=== PATIENT | male | born 1940 | race Caucasian/White ===

== ENCOUNTER 2017-01-02 08:50 | Emergency (ER) | payer MEDICARE ==
[~2017-01-02] VITALS: Ht 182.9 cm; Wt 63.0 kg
[~2017-01-02 08:50] MED LIST: CLIN150 PO
[2017-01-02 08:51] VITALS: BP 127/81; PULSE 119; RESP 20; TEMP 97.7; O2SAT 96
[2017-01-02] MEDS ORDERED: NORC5TAB PO (09:20)
[2017-01-02] MEDS ORDERED: GABA300C5 PO (09:20)
[2017-01-02] MEDS ORDERED: ACYC-101 PO (09:20)
--- NOTE | 2017-01-02 09:20 | PD ---
HPI Chief Complaint: Complaint Time Seen by Provider: 09:08 Travel History International Travel<30 days: No Contact w/Intl Traveler<30days: No Traveled to known affect area: No History of Present Illness HPI 76-year-old male complains of right flank pain. Patient states that the pain started last night. Patient states the pain is sharp pain burning pain started on the right flank area with radiation to right side abdomen. Patient denies any fever chills. Patient denies any dysuria or frequency. Patient denies any nausea vomiting diarrhea. Patient denies any injury. PFSH Past Medical History Hx Anticoagulant Therapy: No Cardiovascular Problems: No Chemotherapy: No COPD: Yes Cerebrovascular Accident: No Diabetes: No Respiratory: No Tetanus Vaccination: Unknown ?: Not Past Surgical History Hysterectomy: No Social History Alcohol Use: No Tobacco Use: Yes (1 PPD) Substance Use: No Allergies-Medications (Allergen,Severity, Reaction): Coded Allergies: No Known Allergies (Unverified , 01/02/17) Reported Meds & Prescriptions Reported Meds & Active Scripts Active Ulysses (Hydrocodone-Acetaminophen) 5-325 mg Tab 1 Tab PO Q6H PRN Gabapentin 300 Mg Cap 300 Mg PO TID Zovirax (Acyclovir) 800 Mg Tab 800 Mg PO 5 TIMES A DAY Review of Systems General / Constitutional: No: Fever Eyes: No: Visual changes HENT: No: Headaches Cardiovascular: No: Chest Pain or Discomfort Respiratory: No: Shortness of Breath Gastrointestinal: No: Abdominal Pain Genitourinary: No: Dysuria Musculoskeletal: No: Pain Skin: No Rash Neurologic: No: Weakness Psychiatric: No: Depression Endocrine: No: Polydipsia Hematologic/Lymphatic: No: Easy Bruising Physical Exam Narrative GENERAL: Well-nourished, well-developed patient. SKIN: Focused skin assessment warm/dry. HEAD: Normocephalic. EYES: No scleral icterus. No injection or drainage. NECK: Supple, trachea midline. No JVD or lymphadenopathy. CARDIOVASCULAR: Regular rate and rhythm without murmurs, gallops, or rubs. RESPIRATORY: Breath sounds equal bilaterally. No accessory muscle use. GASTROINTESTINAL: Abdomen soft, non-tender, nondistended. MUSCULOSKELETAL: No cyanosis, or edema. BACK: Nontender without obvious deformity. No CVA tenderness. Patient has maculopapular rash following dermatome right flank area with extension to the right lower abdomen. Data Data Last Documented VS Vital Signs Date Time Temp Pulse Resp B/P Pulse Ox O2 Delivery O2 Flow Rate FiO2 01/02/17 08:51 97.7 119 20 127/81 96 Room Air MDM Medical Decision Making Medical Screen Exam Complete: Yes Emergency Medical Condition: Yes Differential Diagnosis Differential diagnosis including shingles, folliculitis, cellulitis, nephrolithiasis, pyelonephritis, colitis. Narrative Course 76-year-old male with painful rash right flank area and right side abdomen. Diagnosis Primary Impression: Shingles Qualified Code: B02.9 - Herpes zoster without complication Patient Instructions: General Instructions Additional Instructions: Take medications as directed. Follow-up with personal physician. Return if intractable pain, fever, vomiting. Take stool softener with pain medication. Med/Other Pt SpecificInfo: Prescription(s) given Scripts Hydrocodone-Acetaminophen (Ulysses)5-325 mg Tab1 Tab PO Q6H PRN (PAIN) #30 TAB Ref 0 Prov:Hemal Pack MD 01/02/17 Gabapentin 300 Mg [id number] Mg PO TID #60 CAP Ref 0 Prov:Hemal Pack MD 01/02/17 Acyclovir (Zovirax)800 Mg [id number] Mg PO 5 TIMES A DAY #35 TAB Ref 0 Prov:Hemal Pack MD 01/02/17 Disposition: 01 DISCHARGE HOME Condition: Stable Hemal Pack MD Jan 02, 2017 09:20
== END 2017-01-02 09:38 | disposition home or self-care (01) ==
LOC: NEPE 08:50
DX: B02.9 Zoster without complications (principal); F17.200 Nicotine dependence, unspecified, uncomplicated; Z87.09 Personal history of other diseases of the respiratory system
CPT/HCPCS: 99284

== ENCOUNTER 2018-03-14 07:46 | Inpatient (IN) ==
[2018-03-14] MEDS ORDERED: MethylPREDNISolone Sod Succinate Inj 125 MG/2 ML Vial IV.PUSH ONE (08:25)
--- NOTE | 2018-03-14 08:31 | ED ---
HPI General Chief complaint: Shortness of Breath/Dyspnea Stated complaint: COPD complaint History of Present Illness HPI narrative: Mr. Lawrence is a 77-year old diagnosed 2 years ago with COPD who presents to the ED with a chief complaint of "My breathing." For the past month the patient has experienced exertional dyspnea that has been getting progressively worse. He has a nebulizer that he uses regularly without significant symptom relief. He denies chest pain, pain with deep inspiration, nausea, vomiting, weakness, tremor, diaphoresis. He describes having occasional chest pressure. Related Data Home Medications Medication Instructions Recorded Confirmed albuterol sulfate 2.5 mg INHALATION QID PRN 03/14/18 03/14/18 Allergies Allergy/AdvReac Type Severity Reaction Status Date / Time No Known Allergies Allergy Verified 03/14/18 10:32 Review of Systems ROS: all other systems reviewed are negative ON LICENSE OF [facility] Medical History Medical History COPD (chronic obstructive pulmonary disease) (Acute) Neck mass (Acute) Social History Social History Substance History: No History of Abuse Second Hand Smoke Exposure: No Smoking Status: Current every day smoker Tobacco Type: Cigarettes How Often Do You Have a Drink Containing Alcohol: Never Recent Travel in [facility] within the Last 8 Weeks: No Recent Out of Country Travel within the Last 8 Weeks: No Immunization History Tetanus Immunization: Unsure Hx Influenza Vaccine This Season: No Exam Narrative Exam Narrative: GENERAL: Appears in no acute distress. Speaks comfortably and logically. Alert and oriented x 3. SKIN: Warm and dry. HEAD: Atraumatic. Normocephalic. EYES: Pupils equal and round. No scleral icterus. No injection or drainage. ENT: No nasal bleeding or discharge. Mucous membranes pink and moist. NECK: Trachea midline. Supple. CARDIOVASCULAR: Tachycardic with an irregular rhythm. S1, S2 present. No murmurs. RESPIRATORY: Mild accessory muscle use. Decreased throughout bilaterally. Left lung base breath sounds diminished. Middle-right lung wheezing. GASTROINTESTINAL: Abdomen soft, non-tender, nondistended. Hepatic and splenic margins not palpable. MUSCULOSKELETAL: Extremities without clubbing, cyanosis, or edema. No obvious deformities. NEUROLOGICAL: Awake and alert. No obvious cranial nerve deficits. Motor grossly within normal limits. Five out of 5 muscle strength in the arms and legs. Normal speech. PSYCHIATRIC: Appropriate mood and affect; insight and judgment normal. Course Initial Documented Vital Signs Temperature 97.4 F L 03/14/18 07:54 Pulse Rate 111 H 03/14/18 07:54 Respiratory Rate 18 03/14/18 07:54 Blood Pressure 127/95 H 03/14/18 07:54 Pulse Oximetry 96 03/14/18 07:54 Last Documented Vital Signs Temperature 97.4 F L 03/14/18 07:54 Pulse Rate 106 H 03/14/18 08:36 Respiratory Rate 20 03/14/18 08:36 Blood Pressure 127/95 H 03/14/18 07:54 Pulse Oximetry 96 03/14/18 08:17 Medical Decision Making MDM Narrative Medical decision making narrative: EKG shows frequent PVCs, questionable repolarization STs in V3. Poor baseline it is fairly hard to read the initial EKG. A repeat EKG was done which shows a left bundle branch block. Patient's chest x-ray shows significant signs of bilateral pleural effusion, edema at the bases concerning for possible CHF. BNP is 1000. Patient had initially been given Solu-Medrol nebulizers with some improvement in breathing. Lasix was also given after chest x-ray was identified. His troponin is mildly elevated 0.07. Case was discussed with Dr. Cazares who states that he would like the troponins to be followed, and at this point considering he is [facility], thinks that he probably is better off at [facility] in [facility]. Case had been discussed with Dr. Peres for admission. Medical Screen Exam Complete: Yes Emergency Medical Condition: Yes Differential Diagnosis Differential Diagnosis: COPD versus pneumonia versus CHF versus ACS Lab Data Result diagrams: 03/14/18 08:45 03/14/18 08:45 Lab Results 03/14/18 03/14/18 03/14/18 Range/Units 08:45 08:45 08:45 CBC w Diff Auto diff final WBC 7.7 (4.0-11.0) th/mm3 RBC 4.40 L (4.50-5.90) mil/mm3 Hgb 13.7 (13.0-17.0) gm/dL Hct 40.0 (39.0-51.0) % MCV 90.9 (80.0-100.0) fL MCH 31.1 (27.0-34.0) pg MCHC 34.3 (32.0-36.0) % RDW 14.3 (11.6-17.2) % Plt Count 151 (150-450) th/mm3 MPV 10.7 (7.0-11.0) fL Neut % (Auto) 69.2 (16.0-70.0) % Lymph % (Auto) 22.0 (9.0-44.0) % Tama % (Auto) 6.4 (0.0-8.0) % Eos % (Auto) 1.4 (0.0-4.0) % Baso % (Auto) 1.0 (0.0-2.0) % Neut # (Auto) 5.3 (1.8-7.7) th/mm3 Lymph # (Auto) 1.7 (1.0-4.8) th/mm3 Tama # (Auto) 0.5 (0.0-0.9) th/mm3 Eos # (Auto) 0.1 (0.0-0.4) th/mm3 Baso # (Auto) 0.1 (0.0-0.2) th/mm3 WBC Differential . Differential Comment . Sodium 137 (136-145) meq/L Potassium 3.9 (3.5-5.1) meq/L Chloride 104 (98-107) meq/L Carbon Dioxide 24.9 (21.0-32.0) meq/L Anion Gap 8 (5-15) meq/L BUN 21 H (7-18) mg/dL Creatinine 1.10 (0.60-1.30) mg/dL Estimated GFR 65 L (>89) mL/min Random Glucose 131 H (74-106) mg/dL Calcium 8.8 (8.5-10.1) mg/dL Total Bilirubin 0.7 (0.2-1.0) mg/dL AST 46 H (15-37) U/L ALT 33 (12-78) U/L Alkaline Phosphatase 69 (45-117) U/L Troponin I 0.07 H (0.02-0.05) ng/mL B-Natriuretic Peptide 1009 H (0-100) pg/mL Total Protein 7.7 (6.4-8.2) g/dL Albumin 3.4 (3.4-5.0) g/dL Imaging Data Radiologist's impression: Chest X-Ray 09/02/18 08:17 CONCLUSION: Lower lobe consolidation and pleural effusions. Discharge Plan Discharge Disposition Patient Disposition: 30 Still Patient Discharge Condition Condition: Stable Discharge Details Anticipated Discharge Date: 03/14/18 Diagnosis: Acute exacerbation of chronic obstructive airways disease, CHF (congestive heart failure), Elevated troponin Physicians Team ED Provider: Linette Ortiz Primary Care Provider: Primary Care Nadeen Bland Attending Provider: Liv Peres Status ED Status: Admitted Observation Patient
--- NOTE | 2018-03-14 08:44 | XR ---
EXAM DATE: 03/14/2018 8:41 AM EDT AGE/SEX: 77 years / Male INDICATIONS: Short of breath, cough CLINICAL DATA: This is the patient's initial encounter. Patient reports that signs and symptoms have been present for 2 weeks and indicates a pain score of 0/10. MEDICAL/SURGICAL HISTORY: Chronic obstructive pulmonary disease. None. COMPARISON: No prior exams available for comparison. FINDINGS: The examination demonstrates cardiomegaly, consolidation in the lower lobes and small to moderate katie ateral pleural effusions, left greater than right. The osseous structures are intact. CONCLUSION: Lower lobe consolidation and pleural effusions. Electronically signed by: Kike Meraz MD 03/14/2018 8:43 AM EDT
[2018-03-14 09:05] LABS: Chloride 104 meq/L (98-107); Potassium 3.9 meq/L (3.5-5.1); Sodium 137 meq/L (136-145)
[2018-03-14 09:09] LABS: Albumin 3.4 g/dL (3.4-5.0); Anion Gap 8 meq/L (5-15); Blood Urea Nitrogen 21 mg/dL (7-18); Calcium 8.8 mg/dL (8.5-10.1); Carbon Dioxide 24.9 meq/L (21.0-32.0); Glucose,Random 131 mg/dL (74-106)
[2018-03-14 09:10] LABS: Baso # (Auto) 0.1 th/mm3 (0.0-0.2); Eos # (Auto) 0.1 th/mm3 (0.0-0.4); Eos % (Auto) 1.4 % (0.0-4.0); Hemoglobin 13.7 gm/dL (13.0-17.0); Lymph # (Auto) 1.7 th/mm3 (1.0-4.8); Mean Corpuscular HGB Conc 34.3 % (32.0-36.0); Mean Corpuscular Hemoglobin 31.1 pg (27.0-34.0); Mean Corpuscular Volume 90.9 fL (80.0-100.0); Mean Platelet Volume 10.7 fL (7.0-11.0); Mono # (Auto) 0.5 th/mm3 (0.0-0.9); Mono % (Auto) 6.4 % (0.0-8.0); Neut # (Auto) 5.3 th/mm3 (1.8-7.7); Neut % (Auto) 69.2 % (16.0-70.0); Platelet Count 151 th/mm3 (150-450); Red Cell Distribution Width 14.3 % (11.6-17.2); White Blood Count 7.7 th/mm3 (4.0-11.0)
[2018-03-14 09:12] LABS: Alanine Aminotransferase 33 U/L (12-78); Aspartate Aminotransferase 46 U/L (15-37); Glomerular Filtration Rate 65 mL/min (>89)
[2018-03-14 09:14] LABS: Total Protein 7.7 g/dL (6.4-8.2)
[2018-03-14 09:15] LABS: Alkaline Phosphatase 69 U/L (45-117)
[2018-03-14 09:17] LABS: Troponin I 0.07 ng/mL (0.02-0.05)
[2018-03-14] MEDS ORDERED: Bisacodyl 10 MG Supp RECTAL PRN (10:18)
[2018-03-14] MEDS ORDERED: Acetaminophen 325 MG Tablet PO PRN (10:18)
--- NOTE | 2018-03-14 11:47 | P.HP ---
History of Present Illness Service: Hospitalist Primary Care Physician: No Primary Care Physician Chief Complaint: Shortness of breath History of Present Illness: Mr. Lawrence is a pleasant 77-year-old male with a history of COPD who presented to the emergency department today 03/14/2018 due to shortness of breath. In the last 2 weeks he has been noticing progressively worsening shortness of breath as well as worsening of his chronic cough with phlegm production. Patient denies any orthopnea, lower extremity swelling. He denies any chest pain, fever or chills. No abdominal pain. No changes in bowel or bladder habits. ED evaluation shows lower lobe consolidation and pleural effusion. His troponin was 0.07 and BNP was 1009. Past medical history: COPD Past surgical history: When patient was 12 years old he had a neck mass removal. Social history: Patient currently smokes 5 cigarettes a day. However he has a history of 50 year of smoking approximately 1 pack a day. Denies using alcohol or illicit drugs. Family history: Mother had Alzheimer's disease. - Diagnosis (1) Acute exacerbation of chronic obstructive airways disease (2) CHF (congestive heart failure) (3) Elevated troponin Review of Systems All other systems reviewed negative except as stated in HPI PMFSH - History History Provided By: Patient - Medical History Medical History: Medical History (Last Reviewed 03/14/18 @ 10:59 by Linette Ortiz MD) COPD (chronic obstructive pulmonary disease) Neck mass - Tobacco History Second Hand Smoke Exposure: No Tobacco Use In Past 30 Days: Yes Smoking Status: Current every day smoker Tobacco Type: Cigarettes - Alcohol History How Often Do You Have a Drink Containing Alcohol: Never - Substance Use History Substance History: No History of Abuse - Travel History Recent Travel in the [place] Within the Last 8 Weeks: No Recent Travel Out of the Country Within the Last 8 Weeks: No - Immunization History Tetanus Immunization: Unsure Hx Influenza Vaccine This Season: No Medications and Allergies Active Medications: Active Medications Acetaminophen (Tylenol) 650 mg PO Q4H PRN PRN Reason: Headache, fever, pain 1-4 Al Hydroxide/Mg Hydroxide (Milk Of Magnesia Liq) 30 ml PO Q12H PRN PRN Reason: Mild Constipation Bisacodyl (Dulcolax Supp) 10 mg RECTAL DAILY PRN PRN Reason: SEVERE CONSITIPATION Lactulose (Lactulose Liq) 30 ml PO DAILY PRN PRN Reason: SEVERE CONSITIPATION Ondansetron HCl (Zofran Inj) 4 mg IV.PUSH Q6H PRN PRN Reason: NAUSEA OR VOMITING Sennosides (Senokot) 17.2 mg PO Q12H PRN PRN Reason: Moderate Constipation Allergies Allergy/AdvReac Type Severity Reaction Status Date / Time No Known Allergies Allergy Verified 03/14/18 10:32 Home Medications Medication Instructions Recorded Confirmed Type albuterol sulfate 2.5 mg INHALATION QID PRN 03/14/18 03/14/18 History Exam Vital signs: Vital Signs 03/14/18 07:54 03/14/18 08:17 03/14/18 08:20 Temperature 97.4 F L Pulse Rate 111 H 97 H Respiratory Rate 18 Blood Pressure 127/95 H Pulse Oximetry 96 96 03/14/18 08:36 03/14/18 09:24 03/14/18 10:35 Temperature Pulse Rate 106 H 104 H 104 H Respiratory Rate 20 18 Blood Pressure 135/88 Pulse Oximetry 97 03/14/18 11:26 Temperature Pulse Rate 110 H Respiratory Rate 20 Blood Pressure 133/80 Pulse Oximetry 96 Intake & Output 03/13/18 03/14/18 03/14/18 18:59 06:59 18:59 Output Total 600 / 600 Balance -600 / -600 Weight 61 kg Output: Urine 600 / 600 Narrative: GENERAL: Alert, no acute distress, cachectic appearance. SKIN: No rashes, ecchymoses or lesions. Warm and dry. HEAD: Atraumatic. Normocephalic. No temporal or scalp tenderness. EYES: Pupils equal round and reactive. No injection or drainage. ENT: Nose without bleeding, purulent drainage or septal hematoma. Airway patent. NECK: Trachea midline. No lymphadenopathy. Supple, nontender, no meningeal signs. CARDIOVASCULAR: Regular rate and rhythm without murmurs, gallops, or rubs. No JVD. RESPIRATORY: Moderate air entry, no wheezes, rales, or rhonchi. GASTROINTESTINAL: Abdomen soft, non-tender, nondistended. No guarding. MUSCULOSKELETAL: Extremities without clubbing, cyanosis, or edema. NEUROLOGICAL: Awake and alert. Cranial nerves II through XII intact. No focal neurological deficits. Normal speech. Results - Labs CBC & Chem 7: 03/14/18 08:45 03/14/18 08:45 Labs: Laboratory Results - last 24 hr 03/14/18 03/14/18 03/14/18 08:45 08:45 08:45 CBC w Diff Auto diff final WBC 7.7 RBC 4.40 L Hgb 13.7 Hct 40.0 MCV 90.9 MCH 31.1 MCHC 34.3 RDW 14.3 Plt Count 151 MPV 10.7 Neut % (Auto) 69.2 Lymph % (Auto) 22.0 Weld % (Auto) 6.4 Eos % (Auto) 1.4 Baso % (Auto) 1.0 Neut # (Auto) 5.3 Lymph # (Auto) 1.7 Weld # (Auto) 0.5 Eos # (Auto) 0.1 Baso # (Auto) 0.1 WBC Differential . Differential Comment . Sodium 137 Potassium 3.9 Chloride 104 Carbon Dioxide 24.9 Anion Gap 8 BUN 21 H Creatinine 1.10 Estimated GFR 65 L Random Glucose 131 H Calcium 8.8 Magnesium Total Bilirubin 0.7 AST 46 H ALT 33 Alkaline Phosphatase 69 Troponin I 0.07 H B-Natriuretic Peptide 1009 H Total Protein 7.7 Albumin 3.4 03/14/18 08:45 CBC w Diff WBC RBC Hgb Hct MCV MCH MCHC RDW Plt Count MPV Neut % (Auto) Lymph % (Auto) Weld % (Auto) Eos % (Auto) Baso % (Auto) Neut # (Auto) Lymph # (Auto) Weld # (Auto) Eos # (Auto) Baso # (Auto) WBC Differential Differential Comment Sodium Potassium Chloride Carbon Dioxide Anion Gap BUN Creatinine Estimated GFR Random Glucose Calcium Magnesium 1.7 Total Bilirubin AST ALT Alkaline Phosphatase Troponin I B-Natriuretic Peptide Total Protein Albumin - Imaging Impressions Chest X-Ray 03/14/18 08:17 CONCLUSION: Lower lobe consolidation and pleural effusions. Caprini VTE Risk Assessment Caprini VTE Risk Assessment: No/Low Risk (score <= 1) Caprini Risk Assessment Model: Point Value = 1 Point Value = 2 Point Value = 3 Point Value = 5 Age 41-60 Minor surgery BMI > 25 kg/m2 Swollen legs Varicose veins or History of unexplained or recurrent spontaneous Oral contraceptives or hormone replacement Sepsis (< 1 month) Serious lung disease, including pneumonia (< 1 month) Abnormal pulmonary function Acute myocardial infarction Congestive heart failure (< 1 month) History of inflammatory bowel disease Medical patient at bed rest Age 61-74 Arthroscopic surgery Major open surgery (> 45 min) Laparoscopic surgery (> 45 min) Malignancy Confined to bed (> 72 hours) Immobilizing plaster cast Central venous access Age >= 75 History of VTE Family history of VTE Factor V Leiden Prothrombin [id number] Lupus anticoagulant Anticardiolipin antibodies Elevated serum homocysteine Heparin-induced thrombocytopenia Other congenital or acquired thrombophilia Stroke (< 1 month) Elective arthroplasty Hip, pelvis, or leg fracture Acute spinal cord injury (< 1 month) Prophylaxis Regimen: Total Risk Factor Score Risk Level Prophylaxis Regimen 0-1 Low Early ambulation 2 Moderate Order ONE of the following: *Sequential Compression Device (SCD) *Heparin 5000 units SQ BID 3-4 Higher Order ONE of the following medications: *Heparin 5000 units SQ TID *Enoxaparin/Lovenox 40 mg SQ daily (WT < 150 kg, CrCl > 30 mL/min) *Enoxaparin/Lovenox 30 mg SQ daily (WT < 150 kg, CrCl > 10-29 mL/min) *Enoxaparin/Lovenox 30 mg SQ BID (WT < 150 kg, CrCl > 30 mL/min) AND/OR *Sequential Compression Device (SCD) 5 or more Highest Order ONE of the following medications: *Heparin 5000 units SQ TID (Preferred with Epidurals) *Enoxaparin/Lovenox 40 mg SQ daily (WT < 150 kg, CrCl > 30 mL/min) *Enoxaparin/Lovenox 30 mg SQ daily (WT < 150 kg, CrCl > 10-29 mL/min) *Enoxaparin/Lovenox 30 mg SQ BID (WT < 150 kg, CrCl > 30 mL/min) AND *Sequential Compression Device (SCD) Assessment and Plan - Assessment (1) Acute exacerbation of chronic obstructive airways disease Code(s): J44.1 - Chronic obstructive pulmonary disease with (acute) exacerbation Status: Acute (2) CHF (congestive heart failure) Code(s): I50.9 - Heart failure, unspecified Status: Acute (3) Elevated troponin Code(s): R74.8 - Abnormal levels of other serum enzymes Status: Acute - Plan Mr. Lawrence is a pleasant 77-year-old male with a history of COPD who presents to the emergency department due to acute on chronic dyspnea and cough. His symptoms started approximately 2 weeks ago. However due to worsening of his shortness of breath he is seeking medical attention. He denies any orthopnea or leg swelling. BNP was elevated to 1009, troponin 0.07. Acute exacerbation of COPD -Chest x-ray reviewed and shows left-sided consolidation. -We will start patient on Levaquin 750 mg p.o. daily. -Start patient on ipratropium nebulizer treatments. -No appreciable wheezing noted. Will hold off using steroid for now. If no invasive cardiac work up needed, we can consider Prednisone. Acute onset congestive heart failure -BNP 1009. Patient appears to be well compensated. -Echo completed and official reading pending. However ejection fraction appears to be reduced to 15-20% with dilated LV. -EKG shows multiple PVCs and T wave changes. ED provider discussed with Assembly Worker who recommended patient to be admitted to the main hospital. -Ischemic work up at some point maybe warranted. Tobacco abuse - patient counselled. Full code. Lovenox.
[2018-03-14] MEDS: levoFLOXacin 750 MG Tablet PO SCH (12:57)
[2018-03-14] MEDS: Enoxaparin Inj 40 MG/0.4 ML Syringe SQ SCH (14:23)
--- NOTE | 2018-03-14 16:02 | ECHRPT ---
Indication: NEW ONSET HEART FAILURE CONCLUSIONS Moderately dilated left ventricle. The left ventricular systolic function is severely reduced with an estimated ejection fraction in th e range of 20%. The right ventricular systoilc function is moderately decreased. [id number] mitral valve regurgitation. A moderate left sided pleural effusion is noted. BP: / HR: Rhythm: MEASUREMENTS (Male / Female) Normal Values Technical Quality: 2D ECHO LV Diastolic Diameter PLAX 6.5 cm 4.2 - 5.9 / 3.9 - 5.3 cm LV Systolic Diameter PLAX 6.2 cm IVS Diastolic Thickness 0.9 cm 0.6 - 1.0 / 0.6 - 0.9 cm LVPW Diastolic Thickness 0.6 cm 0.6 - 1.0 / 0.6 - 0.9 cm LV Relative Wall Thickness 0.2 RV Internal Dim ED PLAX 1.8 cm DOPPLER Mitral E Point Velocity 123.0 cm/s Right Atrial Pressure 10.0 mmHg FINDINGS LEFT VENTRICLE Moderately dilated left ventricle. Wall thickness is normal. The left ventricular systolic function is severely reduced with an estimated ejection fraction in th e range of 20%. RIGHT VENTRICLE The right ventricular systoilc function is moderately decreased. LEFT ATRIUM The left atrial size is mildly dilated. RIGHT ATRIUM The right atrial size is normal. ATRIAL SEPTUM Normal atrial septal thickness without atrial level shunting by limited color doppler interrogation. AORTA The aortic root and proximal ascending aorta are normal in size on limited imaging. MITRAL VALVE Structurally normal mitral valve. No mitral valve stenosis. [id number] mitral valve regurgitation. AORTIC VALVE Trileaflet aortic valve. No aortic valve stenosis or regurgitation. TRICUSPID VALVE Structurally normal tricuspid valve. No tricuspid valve stenosis or regurgitation. PULMONARY VALVE The pulmonary valve is not well visualized. VESSELS The inferior vena cava is mildly dilated. PERICARDIUM A moderate left sided pleural effusion is noted. Jay Cazares DO (Electronically Signed) Final Date:14 March 2018 16:01
--- NOTE | 2018-03-14 16:34 | ECG ---
Date Performed: 03/14/2018 Time Performed: 10:22:44 PTAGE: 77 years EKG: SINUS TACHYCARDIA WITH OCCASIONAL SUPRAVENTRICULAR PREMATURE COMPLEXES POSSIBLE LEFT ATRIAL ENLARGEMENT LEFT BUNDLE BRANCH BLOCK ABNORMAL ECG Compared to PREVIOUS TRACING , the ventricular ectopy is no longer present, the PACs are new. PREVIOU S TRACIN03/14/2018 08.28 DOCTOR: Mark Pat Interpretating Date/Time 03/14/2018 16:33:52
--- NOTE | 2018-03-14 16:34 | ECG ---
Date Performed: 03/14/2018 Time Performed: 08:28:47 PTAGE: 77 years EKG: SINUS TACHYCARDIA WITH FREQUENT VENTRICULAR ECTOPY WITH SOME COUPLETS AND TRIPLETS SEEN PRO BABLE ANTEROSEPTAL MYOCARDIAL INFARCTION OF UNDETERMINED AGE INTRAVENTRICULAR CONDUCTION DISTURBANCE NONSPECIFIC ST-T WAVE CHANGE ABNORMAL ECG NO PREVIOUS TRACING DOCTOR: Mark Pat Interpretating Date/Time 03/14/2018 16:33:12
--- NOTE | 2018-03-14 20:18 | MB ---
cc: SageLakshmironnell Sepulveda DO DATE: 03/14/2018 REASON FOR CONSULTATION: Shortness of breath. HISTORY OF PRESENT ILLNESS: The patient is a pleasant 77-year-old male who presented to [facility], [place] due to shortness of breath. I was called because he had a mildly elevated troponin, and asked that he be transferred to [facility] for workup. In seeing him, he states that he has been short of breath off and on for about the past 2 weeks. This seems to come on with any type of exertion. He has also noticed orthopnea and has been unable to lie exactly flat because of this. He does not seem to have any lower extremity swelling. He denies any chest pains. In seeing him, he is currently hemodynamically stable without chest pain or shortness of breath. PAST MEDICAL HISTORY: 1. COPD. 2. Neck mass. PAST SURGICAL HISTORY: Neck mass removal. ALLERGIES: NO KNOWN DRUG ALLERGIES. MEDICATIONS: Albuterol nebulizer every 6 hours as needed. FAMILY HISTORY: Denies premature coronary artery disease or sudden cardiac within the family. SOCIAL HISTORY: The patient is known long-term smoker. He denies alcohol or drug abuse. REVIEW OF SYSTEMS: Fourteen systems were reviewed including osteopathic. Pertinent positives and negatives above, otherwise negative. PHYSICAL EXAMINATION: VITAL SIGNS: Temperature 97.4, heart rate 78, blood pressure 116/67, respirations 16, pulse oximetry 95% on room air. GENERAL: The patient appears well, in no acute distress, alert, awake and oriented x3. HEENT: Extraocular muscles intact. Mucous membranes moist. NECK: Supple. Mild JVD bilaterally. No carotid bruits heard bilaterally. Carotid upstroke is brisk in nature. HEART: Regular rate and rhythm. Positive first and second heart sounds with no noted murmurs, gallops or rubs. LUNGS: Have decreased breath sounds bilaterally with minimal rales at bilateral bases. ABDOMEN: Soft, nontender, nondistended. No organomegaly noted. NEUROLOGIC: No focal deficits. SKIN: Warm, dry and intact. OSTEOPATHIC: No kyphoscoliosis, lordosis or paraspinal tender points. LABORATORY DATA: Hemoglobin 13.7, hematocrit 40.0, platelets 151. Potassium 3.9, BUN 21, creatinine 1.1. Troponin 0.08. Electrocardiogram (03/14/2018 at 12:37): Sinus rhythm with occasional PVCs, left bundle branch block, left axis deviation, possible left atrial enlargement. IMPRESSION: 1. Shortness of breath due to acute systolic heart failure. 2. Acute decompensated heart failure. 3. 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 4. Tobacco abuse. 5. Chronic obstructive pulmonary disease. 6. Minimally elevated troponin, which appears type 2 in nature. RECOMMENDATIONS: 1. Mr. Lawrence presented with shortness of breath and he felt like it was his COPD, but ultimately it appears to be heart failure. 2. This is a new onset cardiomyopathy for him and he will need to undergo some type of workup. 3. I spoke to him about consideration of ischemic workup whether that be stress testing or cardiac catheterization. Ultimately, I would suggest cardiac catheterization to rule out coronary artery disease as the possible cause, but also to avoid missing multivessel disease or left main disease. He will think about this overnight and we will discuss this further tomorrow. 4. We will plan on diuresing him as possible. 5. He will be started on other heart failure medications. 6. I spoke to him for greater than 3 minutes about tobacco cessation. 7. Depending on how he improves, we may need to consider a LifeVest due to his lowered site due to his cardiomyopathy. 8. Further recommendations will be made based on the hospital course. Thank you for allowing me to see Marc Lawrence. If there are any questions, please do not hesitate to call. DO ABBY Cabrera/brooklyn , 06:01 PM , 06:13 PM
[2018-03-15 04:42] LABS: Chol/HDL Ratio 3.67 Ratio; HDL Cholesterol 43.5 mg/dL (40.0-60.0)
--- NOTE | 2018-03-15 10:35 | P.PN ---
Subjective Interval history: Follow-up acute decompensated heart failure March 15, 2018-patient seen and examined, reports some improvement of shortness of breath denies any chest pain. Currently afebrile Physical Exam Vital signs: Vital Signs 03/14/18 10:35 03/14/18 11:26 03/14/18 13:02 Temperature Pulse Rate 104 H 110 H 88 Respiratory Rate 20 16 Blood Pressure 133/80 115/70 Pulse Oximetry 96 95 03/14/18 14:30 03/14/18 16:00 03/14/18 17:00 Temperature 98.2 F Pulse Rate 78 83 84 Respiratory Rate 16 Blood Pressure 116/67 114/75 Pulse Oximetry 95 94 L 03/14/18 18:00 03/14/18 18:12 03/14/18 19:00 Temperature Pulse Rate 92 H 92 H Respiratory Rate Blood Pressure Pulse Oximetry 94 L 03/14/18 19:40 03/14/18 20:00 03/14/18 21:00 Temperature 97.8 F Pulse Rate 99 H 90 86 Respiratory Rate 18 Blood Pressure 114/60 Pulse Oximetry 96 03/14/18 22:00 03/14/18 23:00 03/14/18 23:09 Temperature 97.8 F Pulse Rate 88 85 85 Respiratory Rate 18 Blood Pressure 99/55 L Pulse Oximetry 95 03/15/18 00:00 03/15/18 01:00 03/15/18 02:00 Temperature Pulse Rate 84 84 82 Respiratory Rate Blood Pressure Pulse Oximetry 03/15/18 03:00 03/15/18 04:00 03/15/18 05:00 Temperature 98.0 F Pulse Rate 80 89 86 Respiratory Rate 18 Blood Pressure 109/71 Pulse Oximetry 95 03/15/18 05:59 03/15/18 07:00 03/15/18 08:00 Temperature 98.1 F Pulse Rate 88 90 88 Respiratory Rate 18 Blood Pressure 103/67 Pulse Oximetry 94 L Intake & Output 03/14/18 03/15/18 03/15/18 18:59 06:59 18:59 Intake Total 240 / 240 Output Total 1650 / 1650 900 / 900 Balance -1650 / -1650 -660 / -660 Weight 61 kg 57.4 kg Intake: Oral 240 / 240 Output: Urine 1650 / 1650 900 / 900 Other: # Voids 1 Date of Last Bowel Movement 03/13/18 03/13/18 Narrative: GENERAL: NAD SKIN: Warm and dry. HEAD: Normocephalic. EYES: No scleral icterus. No injection or drainage. NECK: Supple, trachea midline. No JVD or lymphadenopathy. CARDIOVASCULAR: Regular rate and rhythm without murmurs, gallops, or rubs. RESPIRATORY: Breath sounds equal bilaterally. No accessory muscle use. GASTROINTESTINAL: Abdomen soft, non-tender, nondistended. MUSCULOSKELETAL: No cyanosis, or edema. BACK: Nontender without obvious deformity. No CVA tenderness. Results - Labs CBC & Chem 7: 03/14/18 08:45 03/14/18 08:45 Laboratory Results - last 24 hr 03/14/18 03/14/18 03/14/18 08:45 12:35 21:45 Magnesium 1.7 Troponin I 0.08 H 0.06 H Triglycerides Cholesterol LDL Cholesterol, Calc HDL Cholesterol Cholesterol/HDL Ratio 03/15/18 03:33 Magnesium Troponin I Triglycerides 50 Cholesterol 160 LDL Cholesterol, Calc 107 H HDL Cholesterol 43.5 Cholesterol/HDL Ratio 3.67 Assessment and Plan - Assessment (1) Acute exacerbation of chronic obstructive airways disease Code(s): J44.1 - Chronic obstructive pulmonary disease with (acute) exacerbation Status: Acute (2) CHF (congestive heart failure) Code(s): I50.9 - Heart failure, unspecified Status: Acute (3) Elevated troponin Code(s): R74.8 - Abnormal levels of other serum enzymes Status: Acute - Plan 77-year-old man with Acute decompensated heart failure Patient needs ischemic workup Likely will undergo left heart catheterization Check 2D echo Continue with Lasix 40 mg IV every 12 hours Community-acquired pneumonia? Checks x-ray with lower lobe consolidation Currently on Levaquin COPD No current exacerbation DuoNeb as needed Tobacco abuse Tobacco counseling cessation provided DVT prophylaxis: Lovenox
--- NOTE | 2018-03-15 11:49 | P.PNCA ---
Subjective Interval history: No events overnight No complaints, feeling better overall Diuresed 2.3L Physical Exam Vital signs: Vital Signs 03/14/18 13:02 03/14/18 14:30 03/14/18 16:00 Temperature 98.2 F Pulse Rate 88 78 83 Respiratory Rate 16 16 Blood Pressure 115/70 116/67 114/75 Pulse Oximetry 95 95 94 L 03/14/18 17:00 03/14/18 18:00 03/14/18 18:12 Temperature Pulse Rate 84 92 H Respiratory Rate Blood Pressure Pulse Oximetry 94 L 03/14/18 19:00 03/14/18 19:40 03/14/18 20:00 Temperature 97.8 F Pulse Rate 92 H 99 H 90 Respiratory Rate 18 Blood Pressure 114/60 Pulse Oximetry 96 03/14/18 21:00 03/14/18 22:00 03/14/18 23:00 Temperature Pulse Rate 86 88 85 Respiratory Rate Blood Pressure Pulse Oximetry 03/14/18 23:09 03/15/18 00:00 03/15/18 01:00 Temperature 97.8 F Pulse Rate 85 84 84 Respiratory Rate 18 Blood Pressure 99/55 L Pulse Oximetry 95 03/15/18 02:00 03/15/18 03:00 03/15/18 04:00 Temperature 98.0 F Pulse Rate 82 80 89 Respiratory Rate 18 Blood Pressure 109/71 Pulse Oximetry 95 03/15/18 05:00 03/15/18 05:59 03/15/18 07:00 Temperature Pulse Rate 86 88 90 Respiratory Rate Blood Pressure Pulse Oximetry 03/15/18 08:00 Temperature 98.1 F Pulse Rate 88 Respiratory Rate 18 Blood Pressure 103/67 Pulse Oximetry 94 L Intake & Output 03/14/18 03/15/18 03/15/18 18:59 06:59 18:59 Intake Total 240 / 240 Output Total 1650 / 1650 900 / 900 Balance -1650 / -1650 -660 / -660 Weight 61 kg 57.4 kg Intake: Oral 240 / 240 Output: Urine 1650 / 1650 900 / 900 Other: # Voids 1 Date of Last Bowel Movement 03/13/18 03/13/18 Narrative: GENERAL: NAD SKIN: Warm and dry. HEAD: Normocephalic. EYES: No scleral icterus. No injection or drainage. NECK: Supple, trachea midline. No JVD or lymphadenopathy. CARDIOVASCULAR: Regular rate and rhythm without murmurs, gallops, or rubs. RESPIRATORY: Breath sounds equal bilaterally. No accessory muscle use. GASTROINTESTINAL: Abdomen soft, non-tender, nondistended. MUSCULOSKELETAL: No cyanosis, or edema. BACK: Nontender without obvious deformity. No CVA tenderness. Assessment and Plan - Assessment (1) Heart failure, systolic, with acute decompensation Code(s): I50.23 - Acute on chronic systolic (congestive) heart failure Status : Acute (2) CHF (congestive heart failure) Code(s): I50.9 - Heart failure, unspecified Status: Acute (3) Elevated troponin Code(s): R74.8 - Abnormal levels of other serum enzymes Status: Acute - Plan 1) SOB/Acute decompensated systolic heart failure Con't diuresis Plan to start heart failure medications as tolerated, difficult with borderline low blood pressure 2) COPD 3) New cardiomyopathy with an EF of 20% Discussed ischemic evaluation He would prefer to avoid the invasive unless absolutely necessary Plan for stress test in the morning and if positive then will need cath on Thu Plan on Lifevest Would like to talk to the rep, most likely tomorrow 4) Tobacco cessation
[2018-03-15] MEDS: Enoxaparin Inj 40 MG/0.4 ML Syringe SQ SCH (15:47)
[2018-03-15] MEDS: levoFLOXacin 750 MG Tablet PO SCH (15:47)
--- NOTE | 2018-03-15 21:42 | ECG ---
Date Performed: 03/14/2018 Time Performed: 17:51:30 PTAGE: 77 years EKG: Sinus rhythm Leftward axis Left bundle branch block Low QRS voltages in limb leads Abnormal ECG PREVIOUS TRACING : 03/14/2018 12.37 Compared to previous tracing, PACs are no longer present. DOCTOR: Kishore Romano Interpretating Date/Time 03/15/2018 21:41:27
--- NOTE | 2018-03-15 21:42 | ECG ---
Date Performed: 03/14/2018 Time Performed: 12:37:52 PTAGE: 77 years EKG: Sinus rhythm WITH OCCASIONAL VENTRICULAR PREMATURE COMPLEXES WITH OCCASIONAL SUPRAVENTRICULAR PREMATURE COMPLEXES POSSIBLE LEFT ATRIAL ENLARGEMENT LEFT AXIS DEVIATION LEFT BUNDLE BRANCH BLOCK ABNORMAL ECG PREVIOUS TRACING : 03/14/2018 10.22 No significant change from previous tracing noted. DOCTOR: Kishore Romano Interpretating Date/Time 03/15/2018 21:41:51
[2018-03-16] MEDS ORDERED: Atropine Inj 1 MG/10 ML Syringe ONE ×2 (09:24→11:22)
[2018-03-16] MEDS ORDERED: Lidocaine 2% 100 MG/5 ML Syringe ONE ×2 (09:24→11:22)
[2018-03-16] MEDS ORDERED: Regadenoson Inj 0.4 MG/5 ML Syringe IV.PUSH ONE (10:14)
--- NOTE | 2018-03-16 11:16 | P.PN ---
Subjective Interval history: Follow-up acute decompensated heart failure March 15, 2018-patient seen and examined, reports some improvement of shortness of breath denies any chest pain. Currently afebrile March 16, 2018-patient seen and examined and informed stress test this a.m. Denies any chest pain or significant shortness of breath. BP soft Physical Exam Vital signs: Vital Signs 03/15/18 12:00 03/15/18 13:00 03/15/18 14:00 Temperature 98.3 F Pulse Rate 88 91 H 92 H Respiratory Rate 18 Blood Pressure 89/62 L Pulse Oximetry 96 03/15/18 15:00 03/15/18 16:00 03/15/18 17:00 Temperature 98.4 F Pulse Rate 91 H 96 H 90 Respiratory Rate 18 Blood Pressure 100/69 Pulse Oximetry 96 03/15/18 18:00 03/15/18 19:00 03/15/18 20:00 Temperature 98 F Pulse Rate 88 92 H 92 H Respiratory Rate 18 Blood Pressure 83/57 L Pulse Oximetry 97 03/15/18 21:00 03/15/18 22:00 03/15/18 23:46 Temperature 98 F Pulse Rate 84 84 74 Respiratory Rate 18 Blood Pressure 98/59 L Pulse Oximetry 96 03/16/18 00:00 03/16/18 01:00 03/16/18 02:00 Temperature Pulse Rate 82 84 84 Respiratory Rate Blood Pressure Pulse Oximetry 03/16/18 03:00 03/16/18 04:00 03/16/18 05:00 Temperature 98.0 F Pulse Rate 72 88 80 Respiratory Rate 18 Blood Pressure 99/70 L Pulse Oximetry 95 03/16/18 06:00 03/16/18 08:02 Temperature 97.3 F L Pulse Rate 74 72 Respiratory Rate 16 Blood Pressure 93/70 L Pulse Oximetry 98 Intake & Output 03/15/18 03/16/18 03/16/18 18:59 06:59 18:59 Intake Total 1060 / 1060 300 / 300 Output Total 1350 / 1350 1150 / 1150 Balance -290 / -290 -850 / -850 Weight 57.2 kg Intake: Oral 1060 / 1060 300 / 300 Output: Urine 1350 / 1350 1150 / 1150 Other: Date of Last Bowel Movement 03/15/18 # Bowel Movements 1 Narrative: GENERAL: NAD SKIN: Warm and dry. HEAD: Normocephalic. EYES: No scleral icterus. No injection or drainage. NECK: Supple, trachea midline. No JVD or lymphadenopathy. CARDIOVASCULAR: Regular rate and rhythm without murmurs, gallops, or rubs. RESPIRATORY: Breath sounds equal bilaterally. No accessory muscle use. GASTROINTESTINAL: Abdomen soft, non-tender, nondistended. MUSCULOSKELETAL: No cyanosis, or edema. BACK: Nontender without obvious deformity. No CVA tenderness. Results - Labs CBC & Chem 7: 03/14/18 08:45 03/14/18 08:45 Assessment and Plan - Assessment (1) Acute exacerbation of chronic obstructive airways disease Code(s): J44.1 - Chronic obstructive pulmonary disease with (acute) exacerbation Status: Acute (2) CHF (congestive heart failure) Code(s): I50.9 - Heart failure, unspecified Status: Acute (3) Elevated troponin Code(s): R74.8 - Abnormal levels of other serum enzymes Status: Acute - Plan 77-year-old man with Acute decompensated heart failure Cardiomyopathy Patient needs ischemic workup Likely will undergo left heart catheterization, however nuclear stress test this a.m. 2D echo with EF 20% Continue with Lasix 40 mg IV every 12 hours, Coreg, aspirin Consider LifeVest discharge Community-acquired pneumonia? Chest x-ray with lower lobe consolidation Currently on Levaquin COPD No current exacerbation DuoNeb as needed Tobacco abuse Tobacco counseling cessation provided DVT prophylaxis: Lovenox
--- NOTE | 2018-03-16 11:44 | NM ---
EXAM DATE: 03/16/2018 11:39 AM EDT AGE/SEX: 77 years / Male INDICATIONS:Coronary artery disease. Congestive heart failure Dyspnea. CLINICAL DATA: This is the patient's initial encounter. Patient reports that signs and symptoms have been present for 1 day and indicates a pain score of 0/10. MEDICAL/SURGICAL HISTORY: Chronic obstructive pulmonary disease. None. COMPARISON: No prior exams available for comparison. DOSE: 8.7 mCi Tc 99m Myoview at rest 26.5 mCi [id number] at stress 0.4 mg Lexiscan STRESS SYMPTOMS: None. EJECTION FRACTION: 17 % TECHNIQUE: The patient underwent pharmacologic stress with infusion of prescribed dose. Continuous ECG tracing was monitored during stress. Gated SPECT imaging was performed after stress and conventi onal SPECT imaging was performed at rest. The examination was performed on a SPECT/CT scanner, both attenuation and non-corrected datasets were reviewed. FINDINGS: Distribution: The maximum perfused segment at stress is in the lateral wall. Perfusion Study: There is absent perfusion at the apex on the stress images. This remains fixed on the rest images. Otherwise, there is uptake along the septal, lateral, anterior and inferior rivas. T here is no evidence of any redistribution on the rest images.. Gated Study: There is global hypokinesis. The ejection fraction is calculated at 17%. RISK CATEGORY: Low to intermediate CONCLUSION: 1. There is a fixed defect involving the apex most likely representing a previous transmural infarct ion. 2. No definite ischemic myocardial changes are seen on today's examination. 3. Diffuse global hypokinesis with a diminished ejection fraction of 17%. Electronically signed by: Kirk Starks MD 03/16/2018 11:43 AM EDT
[2018-03-16] MEDS: levoFLOXacin 750 MG Tablet PO SCH (12:43)
[2018-03-16] MEDS: Enoxaparin Inj 40 MG/0.4 ML Syringe SQ SCH (14:27)
--- NOTE | 2018-03-16 17:52 | P.PNCA ---
Subjective Interval history: No events overnight Breathing much better Physical Exam Vital signs: Vital Signs 03/15/18 18:00 03/15/18 19:00 03/15/18 20:00 Temperature 98 F Pulse Rate 88 92 H 92 H Respiratory Rate 18 Blood Pressure 83/57 L Pulse Oximetry 97 03/15/18 21:00 03/15/18 22:00 03/15/18 23:46 Temperature 98 F Pulse Rate 84 84 74 Respiratory Rate 18 Blood Pressure 98/59 L Pulse Oximetry 96 03/16/18 00:00 03/16/18 01:00 03/16/18 02:00 Temperature Pulse Rate 82 84 84 Respiratory Rate Blood Pressure Pulse Oximetry 03/16/18 03:00 03/16/18 04:00 03/16/18 05:00 Temperature 98.0 F Pulse Rate 72 88 80 Respiratory Rate 18 Blood Pressure 99/70 L Pulse Oximetry 95 03/16/18 06:00 03/16/18 07:00 03/16/18 08:02 Temperature 97.3 F L Pulse Rate 74 71 72 Respiratory Rate 16 Blood Pressure 93/70 L Pulse Oximetry 98 03/16/18 11:40 03/16/18 11:56 Temperature 97.6 F Pulse Rate 88 Respiratory Rate 16 Blood Pressure 94/62 L Pulse Oximetry 97 96 Intake & Output 03/15/18 03/16/18 03/16/18 18:59 06:59 18:59 Intake Total 1060 / 1060 300 / 300 Output Total 1350 / 1350 1150 / 1150 Balance -290 / -290 -850 / -850 Weight 57.2 kg Intake: Oral 1060 / 1060 300 / 300 Output: Urine 1350 / 1350 1150 / 1150 Other: Date of Last Bowel Movement 03/15/18 # Bowel Movements 1 Narrative: GENERAL: NAD SKIN: Warm and dry. HEAD: Normocephalic. EYES: No scleral icterus. No injection or drainage. NECK: Supple, trachea midline. No JVD or lymphadenopathy. CARDIOVASCULAR: Regular rate and rhythm without murmurs, gallops, or rubs. RESPIRATORY: Breath sounds equal bilaterally. No accessory muscle use. GASTROINTESTINAL: Abdomen soft, non-tender, nondistended. MUSCULOSKELETAL: No cyanosis, or edema. BACK: Nontender without obvious deformity. No CVA tenderness. Assessment and Plan - Assessment (1) Heart failure, systolic, with acute decompensation Code(s): I50.23 - Acute on chronic systolic (congestive) heart failure Status : Acute (2) CHF (congestive heart failure) Code(s): I50.9 - Heart failure, unspecified Status: Acute (3) Elevated troponin Code(s): R74.8 - Abnormal levels of other serum enzymes Status: Acute - Plan 1) SOB/Acute decompensated systolic heart failure Con't diuresis Plan to change to oral Start on Heart failure meds 2) COPD 3) New cardiomyopathy with an EF of 20% Discussed ischemic evaluation He would prefer to avoid the invasive unless absolutely necessary Stress test showing no ischemia, possible infarctions Plan on Lifevest Would like to talk to the rep, most likely tomorrow 4) Tobacco cessation 5) Possible DC tomorrow
[2018-03-16] MEDS ORDERED: Lisinopril 5 MG Tablet PO SCH (18:00)
[2018-03-16] MEDS: Furosemide 40 MG Tablet PO SCH (18:14)
[2018-03-17] MEDS ORDERED: Lisinopril 5 MG Tablet PO SCH (09:00)
[2018-03-17] MEDS: Furosemide 40 MG Tablet PO SCH (09:47)
[2018-03-17 12:28] VITALS: BP 98/65; RESP 16; TEMP 98; O2SAT 96
--- NOTE | 2018-03-17 12:40 | P.PN ---
Subjective Interval history: patient up sitting at side of bed, had already been up and ambulating tolerateing well Physical Exam Vital signs: Vital Signs 03/16/18 13:00 03/16/18 16:00 03/16/18 17:00 Temperature 97.3 F L Pulse Rate 86 90 78 Respiratory Rate 16 Blood Pressure 100/58 L Pulse Oximetry 96 03/16/18 18:00 03/16/18 20:00 03/16/18 21:24 Temperature 97.8 F Pulse Rate 92 H 70 Respiratory Rate 18 Blood Pressure 110/60 Pulse Oximetry 97 97 03/17/18 00:00 03/17/18 04:00 03/17/18 08:00 Temperature 98.4 F 97.8 F 97.8 F Pulse Rate 68 79 Respiratory Rate 18 Blood Pressure 101/62 100/68 94/66 L Pulse Oximetry 95 03/17/18 09:43 03/17/18 10:18 03/17/18 12:00 Temperature 98.0 F Pulse Rate 81 83 Respiratory Rate 16 Blood Pressure 105/69 98/65 L Pulse Oximetry 96 93 L 96 Intake & Output 03/16/18 03/17/18 03/17/18 18:59 06:59 18:59 Intake Total 480 / 480 300 / 300 Output Total 900 / 900 450 / 450 Balance -420 / -420 -150 / -150 Weight 53.7 kg Intake: Oral 480 / 480 300 / 300 Output: Urine 900 / 900 450 / 450 Other: Date of Last Bowel Movement 03/16/18 Narrative: awake and alert, no acute distress anciteric decrease breath sounds, no rales regular rhythm abdomen soft, nontender extremities no edema neuro exam- unrmarkable Results - Labs CBC & Chem 7: 03/14/18 08:45 03/14/18 08:45 Assessment and Plan - Assessment (1) Acute exacerbation of chronic obstructive airways disease Code(s): J44.1 - Chronic obstructive pulmonary disease with (acute) exacerbation Status: Acute (2) CHF (congestive heart failure) Code(s): I50.9 - Heart failure, unspecified Status: Acute (3) Elevated troponin Code(s): R74.8 - Abnormal levels of other serum enzymes Status: Acute - Plan 77-year-old man with Acute decompensated heart failure Cardiomyopathy 2D echo with EF 20%. Myocardial perfusion study- shows no reversible defect, fixed defect Continue with Lasix 40 mg bid, Coreg, aspirin awaiting Lifevest fitting today then DC consider Adding JESUS as OP- d/w Dr. Cazares- SBPs in the Community-acquired pneumonia- afebrile Chest x-ray with lower lobe consolidation Currently on Levaquin COPD No current exacerbation DuoNeb as needed Tobacco abuse Tobacco counseling cessation provided DVT prophylaxis: Lovenox DC home today OP ff up with cardiology OP ff up with a PCP
[2018-03-17] MEDS: Enoxaparin Inj 40 MG/0.4 ML Syringe SQ SCH (13:25)
[2018-03-17] MEDS: levoFLOXacin 750 MG Tablet PO SCH (13:25)
--- NOTE | 2018-03-17 17:45 | P.PNCA ---
Subjective Interval history: No events overnight Doing well overall Physical Exam Vital signs: Vital Signs 03/16/18 18:00 03/16/18 20:00 03/16/18 21:24 Temperature 97.8 F Pulse Rate 92 H 70 Respiratory Rate 18 Blood Pressure 110/60 Pulse Oximetry 97 97 03/17/18 00:00 03/17/18 04:00 03/17/18 07:00 Temperature 98.4 F 97.8 F Pulse Rate 68 87 Respiratory Rate Blood Pressure 101/62 100/68 Pulse Oximetry 03/17/18 08:00 03/17/18 09:00 03/17/18 09:43 Temperature 97.8 F Pulse Rate 76 80 81 Respiratory Rate 18 Blood Pressure 94/66 L 105/69 Pulse Oximetry 95 96 03/17/18 10:00 03/17/18 10:18 03/17/18 11:00 Temperature Pulse Rate 82 82 Respiratory Rate Blood Pressure Pulse Oximetry 93 L 03/17/18 12:00 03/17/18 13:00 03/17/18 14:00 Temperature 98.0 F Pulse Rate 80 76 76 Respiratory Rate 16 Blood Pressure 98/65 L Pulse Oximetry 96 03/17/18 17:20 Temperature Pulse Rate Respiratory Rate Blood Pressure Pulse Oximetry 96 Intake & Output 03/16/18 03/17/18 03/17/18 18:59 06:59 18:59 Intake Total 480 / 480 300 / 300 Output Total 900 / 900 450 / 450 Balance -420 / -420 -150 / -150 Weight 53.7 kg Intake: Oral 480 / 480 300 / 300 Output: Urine 900 / 900 450 / 450 Other: Date of Last Bowel Movement 03/16/18 Narrative: awake and alert, no acute distress anciteric decrease breath sounds, no rales regular rhythm abdomen soft, nontender extremities no edema neuro exam- unrmarkable Assessment and Plan - Assessment (1) Heart failure, systolic, with acute decompensation Code(s): I50.23 - Acute on chronic systolic (congestive) heart failure Status : Acute (2) CHF (congestive heart failure) Code(s): I50.9 - Heart failure, unspecified Status: Acute (3) Elevated troponin Code(s): R74.8 - Abnormal levels of other serum enzymes Status: Acute - Plan 1) SOB/Acute decompensated systolic heart failure Con't diuresis Plan to change to oral Start on Heart failure meds Coreg No JESUS/ARB at this time due to borderline hypotension 2) COPD 3) New cardiomyopathy with an EF of 20% Discussed ischemic evaluation He would prefer to avoid the invasive unless absolutely necessary Stress test showing no ischemia, possible infarctions Plan on Lifevest Would like to talk to the rep before discharge 4) Tobacco cessation 5) Cardiovascularly stable for discharge
[2018-03-17 18:09] VITALS: PULSE 78
== END 2018-03-17 18:15 | disposition home or self-care (01) ==
LOC: PHEDA 07:46 → PHED 07:46 → HCIS 15:35
PROVIDERS: ADMIT Internal Medicine; ATTEND Internal Medicine